=== PATIENT | female | born 1950 | race Hispanic/Latino ===

== ENCOUNTER 2017-05-26 10:16 | Inpatient (IN) | payer OTHER ==
[~2017-05-26] VITALS: Ht 157.5 cm; Wt 87.3 kg
[~2017-05-26 10:16] MED LIST: CIPRO500 MG PO; FLAGYL250 MG PO; LACTULOSE20 GM/30 M PO; LEVAQUIN500 MG PO; MELOXICAM7.5 MG PO; METFORMIN HCL500 MG PO; NADOLOL20 MG PO; PANTOPRAZOLE SO40 MG PO; TYLENOL WITH C1 EACH PO; XIFAXAN550 MG PO
[2017-05-26] MEDS ORDERED: ASPIRIN 81 MG CHEW TAB PO ONE (11:15)
[2017-05-26 13:02] LABS: BILIRUBIN,URINE NEGATIVE (NEGATIVE); CLARITY,URINE CLOUDY (CLEAR); COLOR,URINE YELLOW (YELLOW); KETONES,URINE NEGATIVE (NEGATIVE); LEUKOCYTE ESTERASE ,URINE 1+ (NEGATIVE); NITRITE,URINE NEGATIVE (NEGATIVE); PROTEIN,URINE DIPSTICK 1+ (NEGATIVE); URINE UROBILINOGEN 0.2 mg/dL (0.2 - 1)
[2017-05-26 13:12] LABS: BACTERIA,URINE MANY /HPF
[2017-05-26 13:13] LABS: EPITHELIAL CELLS,URINE FEW /LPF
[2017-05-26 15:39] LABS: BASOPHILS % 0.2 % (0.0-1.0); EOSINOPHILS % 0.2 % (0.0-6.0); HEMATOCRIT 32.5 % (34.2-44.1); HEMOGLOBIN 10.6 g/dL (12.0-16.0); LYMPHOCYTES # (AUTO) 0.3 (1.0-3.2); LYMPHOCYTES % 5.4 % (18.0-39.1); MEAN CORPUSCULAR HEMOGLOBIN 26.6 pg (28-32); MEAN CORPUSCULAR HGB CONC 32.6 g/dL (31-35); MEAN CORPUSCULAR VOLUME 81.5 fL (81-99); MONOCYTES # (AUTO) 0.3 (0.2-0.8); MONOCYTES % 5.9 % (4.4-11.3); NEUTROPHILS % 88.1 % (38.7-80.0); PLATELET COUNT 65 x10e3/uL (140-360); RED BLOOD COUNT 3.99 x10e6/uL (3.6-5.1); RED CELL DISTRIBUTION WIDTH 16.3 % (11.7-14.4)
[2017-05-26 15:58] LABS: ALBUMIN 3.1 g/dL (3.5-5.0); ALBUMIN/GLOBULIN RATIO 0.8 (0.8-2.0); ANION GAP 11.2 mmol/L (8-16); CALCIUM 8.4 mg/dL (8.4-10.2); CREATININE, SERUM 1.04 mg/dL (0.57-1.11); POTASSIUM 4.2 mmol/L (3.5-5.1)
[2017-05-26 16:04] LABS: CREATINE KINASE MB 0.8 ng/mL (0.00-5.00)
[2017-05-26 16:35] LABS: INR 1.13; PROTHROMBIN TIME 15.1 seconds (11.9-14.5)
[2017-05-26 16:36] LABS: PARTIAL THROMBOPLASTIN TIME 32.1 seconds (23.8-35.5)
[2017-05-26] MEDS ORDERED: CEFTRIAXONE SOD 1 GM VIAL IV ONE (16:45)
[2017-05-26] MEDS ORDERED: SODIUM CHLORIDE 0.9% 500ML 500 ML IV ONE (17:30)
--- NOTE | 2017-05-26 18:51 | Diagnostic Imaging Report ---
PROCEDURE: CT ABDOMEN AND PELVIS WITH CONTRAST TECHNIQUE: The abdomen and pelvis were scanned utilizing a multidetector helical scanner from the diaphragm to the lesser trochanter after the IV administration of 100 cc of Isovue 370 and the oral administration of 900 cc of water. Coronal and sagittal multiplanar reformations were obtained. DLP: 870.4 mGy-cm COMPARISON: Abdominal CT 12/31/2015 INDICATIONS: ABDOMINAL PAIN, RULE OUT MASS FINDINGS: LOWER THORAX: Persistent small right pleural effusion. New trace left pleural effusion. HEPATOBILIARY: Mildly nodular liver contour with enlarged caudate and left hepatic lobes reflecting cirrhosis. Poorly circumscribed approximately 6.5 x 6.1 x 7.3 cm heterogeneous mass (series 2 image 13) in the right hepatic lobe at the dome. This is in a region of localized intrahepatic biliary ductal dilatation noted on CT 01/01/2017 with the area of abnormality previously measuring 4.2 cm. There are increased areas of central hypoattenuation which may reflect necrosis or central washout. Increased associated biliary ductal dilatation, for example on coronal image 64 measuring 0.9 cm in hepatic segment V. SPLEEN: Enlarged measuring 18.9 cm in length. PANCREAS: No focal masses or ductal dilatation. ADRENALS: No adrenal nodules. KIDNEYS/URETERS: No hydronephrosis, stones, or solid mass lesions. Multifocal areas of scarring in the right kidney. A subcentimeter hypodensity in the superior right renal pole is too small to characterize but probably a cyst. PELVIC ORGANS/BLADDER: Unremarkable. PERITONEUM / RETROPERITONEUM: No free air. Small amount of pelvic ascites. LYMPH NODES: Increased size of a portocaval node (series 2 image 31) from 0.8 cm to 1.1 cm. VESSELS: Non-occlusive thrombus of the SMV near the portal confluence (coronal image 57). Dilated portal vein measuring 2.1 cm related to portal hypertension GI TRACT: No distention or wall thickening. Stable approximately 1.6 cm prominence of the distal esophagus which may reflect a paraesophageal hernia or focal area of wall thickening rather than a lymph node based on the previous CT. BONES AND SOFT TISSUES: Increased size of a fluid containing supraumbilical hernia with hernia sac measuring approximately 7.4 x 6.8 x 10.1 cm (previously 3.3 x 2.6 x 3.4 cm) and now appears multiseptated. No suspicious osseous lesions. Degenerative changes of the spine IMPRESSION: 1. Cirrhosis with a poorly circumscribed 7.3 cm mass in the hepatic dome. In the setting of cirrhosis, HCC is the primary concern. Cholangiocarcinoma is another consideration given the biliary ductal dilatation. Recommend MRI abdomen without and with contrast (liver mass protocol) for further characterization. 2. Portal hypertension with splenomegaly. 3. 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 4. Small bilateral pleural effusions, right greater than left. Trace ascites. 5. Enlarging multiseptated fluid-containing supraumbilical hernia. Dictated by: Roshan Couch M.D. on 05/26/2017 at 18:44 Electronically approved by: Roshan Couch M.D. on 05/26/2017 at 18:59
[2017-05-26] MEDS ORDERED: IBUPROFEN 600 MG TAB PO STA (19:49)
[2017-05-26] MEDS ORDERED: METRONIDAZOLE 500MG/NS 100ML 100 ML IV STA (19:49)
[2017-05-26] MEDS ORDERED: SODIUM CHLORIDE 0.9% 1000ML 1,000 ML IV SCH (20:00)
[2017-05-26] MEDS ORDERED: MORPHINE SULFATE 2 MG/ML SYR IV PRN (20:30)
[2017-05-26] MEDS ORDERED: ONDANSETRON HCL INJ 2 MG/ML VIAL IV PRN (20:30)
[2017-05-26] MEDS ORDERED: DEXTROSE 50% SYRINGE 50 ML IV PRN (20:30)
[2017-05-26] MEDS: SODIUM CHLORIDE 0.9% 1000ML 1,000 ML IV SCH (20:54)
[2017-05-26] MEDS ORDERED: INSULIN REGULAR, HUMAN 100 UNIT/1 ML 3ML VIAL SQ SCH (21:00)
[2017-05-26] MEDS ORDERED: IOPAMIDOL 370 MG/ML 200 ML INFUS..BTL INJ ONE (22:07)
[2017-05-26] MEDS ORDERED: SODIUM CHLORIDE 0.9% 50ML 50 ML ONE (22:07)
[2017-05-27] VITALS: BP 105/62
[2017-05-27] MEDS ORDERED: METRONIDAZOLE 500MG/NS 100ML 100 ML IV SCH (02:00)
[2017-05-27] MEDS ORDERED: METRONIDAZOLE 500MG/NS 100ML 100 ML IV ONE (02:07)
[2017-05-27 04:00] VITALS: BP 100/54
[2017-05-27] MEDS ORDERED: SODIUM CHLORIDE 0.9% 1000ML 1,000 ML ONE (05:27)
[2017-05-27] MEDS: SODIUM CHLORIDE 0.9% 1000ML 1,000 ML IV SCH (05:43)
[2017-05-27 06:04] LABS: EOSINOPHILS % 0.8 % (0.0-6.0); HEMOGLOBIN 8.5 g/dL (12.0-16.0); LYMPHOCYTES # (AUTO) 0.2 (1.0-3.2); LYMPHOCYTES % 8.6 % (18.0-39.1); MEAN CORPUSCULAR HEMOGLOBIN 26.8 pg (28-32); MEAN CORPUSCULAR HGB CONC 32.7 g/dL (31-35); MONOCYTES # (AUTO) 0.3 (0.2-0.8); MONOCYTES % 11.1 % (4.4-11.3); NEUTROPHILS # (AUTO) 1.9 (2.1-6.9); NEUTROPHILS % 79.1 % (38.7-80.0); RED BLOOD COUNT 3.17 x10e6/uL (3.6-5.1); RED CELL DISTRIBUTION WIDTH 16.3 % (11.7-14.4)
[2017-05-27 06:06] LABS: PLATELET COUNT 49 x10e3/uL (140-360)
[2017-05-27 06:22] LABS: ALBUMIN 2.3 g/dL (3.5-5.0); ALBUMIN/GLOBULIN RATIO 0.8 (0.8-2.0); ANION GAP 8.4 mmol/L (8-16); CALCIUM 7.4 mg/dL (8.4-10.2); CREATININE, SERUM 0.97 mg/dL (0.57-1.11); POTASSIUM 3.4 mmol/L (3.5-5.1)
[2017-05-27] MEDS: METRONIDAZOLE 500MG/NS 100ML 100 ML IV SCH ×3 (08:00→20:44)
[2017-05-27 08:19] VITALS: BP 94/46
[2017-05-27] MEDS ORDERED: ONDANSETRON HCL INJ 2 MG/ML VIAL IV PRN (09:00)
[2017-05-27] MEDS: PANTOPRAZOLE 40 MG 10ML VIAL IV SCH (09:00)
[2017-05-27] MEDS ORDERED: DEXTROSE 50% SYRINGE 50 ML IV PRN (09:00)
[2017-05-27] MEDS ORDERED: SODIUM CHLORIDE 0.9% 1000ML 1,000 ML IV SCH (09:00)
[2017-05-27] MEDS ORDERED: LACTULOSE SYRUP 20 GM/30 ML UDC PO SCH (09:00)
[2017-05-27] MEDS: LACTULOSE SYRUP 20 GM/30 ML UDC PO SCH ×2 (09:00→17:00)
[2017-05-27] MEDS ORDERED: PANTOPRAZOLE 40 MG 10ML VIAL IV SCH (09:00)
[2017-05-27] MEDS: INSULIN REGULAR, HUMAN 100 UNIT/1 ML 3ML VIAL SQ SCH ×3 (11:30→21:00)
--- NOTE | 2017-05-27 12:18 | Consultation ---
DATE OF CONSULTATION: May 27, 2017 REFERRING PHYSICIAN: Dr. Orville Brower. HISTORY OF PRESENT ILLNESS: The patient is a 67-year-old female who presented with complaints of abdominal pain in the periumbilical area. She says she had it for a couple of days. She has had a known hernia in that area for several months. Apparently previously had drainage of fluid from the umbilical area with what she described as a ball there. She says the pain increased yesterday but now is somewhat less today. She had some nausea yesterday but none today. She also has findings on CT scan of cirrhosis of the liver with a mass in the liver and evidence of portal hypertension. PAST MEDICAL HISTORY: Significant for hypertension, diabetes, hepatitis C, cirrhosis. The only previous surgery is a tubal ligation. MEDICATIONS AT HOME: Lactulose, metformin, nadolol and Protonix. ALLERGIES: SHE HAS NO KNOWN ALLERGIES. FAMILY HISTORY: Noncontributory. SOCIAL HISTORY: The patient does not smoke cigarettes and does not drink alcohol. REVIEW OF SYSTEMS: As stated above, otherwise was negative. PHYSICAL EXAMINATION VITAL SIGNS: Normal. GENERAL: The patient is awake and alert, in no distress. HEENT: No scleral icterus. NECK: No masses. LUNGS: Equal breath sounds are clear bilaterally. CARDIAC: Regular rate and rhythm. ABDOMEN: Soft. There is a mildly tender mass just above the umbilicus which is not reducible. There is no organomegaly. EXTREMITIES: Slightly cachectic with no edema. NEUROLOGIC: Grossly intact. LABORATORY DATA: White blood cell count is 2.4, hemoglobin 8.5, hematocrit 26, and platelet count 49,000. Chemistries: Elevated bilirubin at 2.3. The BUN and creatinine are normal. ASSESSMENT: This is a 67-year-old female with symptomatic umbilical hernia but no evidence of intestinal involvement and no obstruction. She also has cirrhosis and a mass in the liver. I think this needs to be evaluated before any consideration is made for repair of the hernia. She is at increased risk for complications with repair of the hernia because of her underlying liver disease. Thank you for asking see to see Ms. Vanessa. Job#: [id number]
--- NOTE | 2017-05-27 12:22 | Consultation ---
DATE OF CONSULTATION: May 26, 2017 REFERRING PHYSICIAN: Dr. Jose Whyte. REASON FOR CONSULT 1. RAMOS liver cirrhosis. 2. Liver mass. HISTORY OF PRESENTING ILLNESS: A 67-year-old, very pleasant female who speaks Icelandic fluently. She is a patient of my associate, Dr. Reeves. She follows up with him for compensated RAMOS liver cirrhosis. She saw him in April. She came to the emergency room with 2 days' history of intermittently persistent periumbilical pain. She does have umbilical hernia. No associated nausea, vomiting, diarrhea, constipation. Patient has had a CT scan done that showed a liver mass. GI is being consulted to assist in her care for RAMOS liver cirrhosis with liver mass. Surgery has been consulted for umbilical hernia. REVIEW OF SYSTEMS: Twelve point systems reviewed, symptomatology is limited as per HPI. PAST MEDICAL HISTORY: RAMOS liver cirrhosis. PAST SURGICAL HISTORY: Upper endoscopy, last one done about a year ago. FAMILY HISTORY: Negative for any GI or [employer] malignancy. SOCIAL HISTORY: No smoking, alcohol or any illicit drug use. ALLERGIES: NONE. HOME MEDICATIONS: Reviewed. PHYSICAL EXAMINATION VITAL SIGNS: Stable. GENERAL: Not in any acute distress. HEENT: Moist mucous membranes. Anicteric sclerae. No neck or axillary adenopathy. CVS: S1, S2. Regular. LUNGS: Bilaterally grossly clear. ABDOMEN: Obese, soft. No palpable hepatosplenomegaly. No shifting dullness. A small paraumbilical hernia. Mild left lower quadrant tenderness. No rebound, rigidity or guarding. Positive bowel sounds. EXTREMITIES: Warm. No leg edema. Lab and CT results to be reviewed. PLAN: Surgery consult for possible hernia repair. Pain in the paraumbilical region is likely due to hernia. Liver mass needs to be evaluated. We will review the CT film with the radiologist. Check a tumor marker, AFP. I thank Dr. Montelongo (ER physician) for allowing me to participate in the care of this patient. Job#: [id number] [facility]
[2017-05-27 12:55] VITALS: BP 102/54
[2017-05-27] MEDS ORDERED: GADOBUTROL 10 MMOL/10 ML VIAL IV ONE (14:35)
[2017-05-27] MEDS ORDERED: SODIUM CHLORIDE 0.9% 50ML 50 ML ONE (14:35)
[2017-05-27 16:58] VITALS: BP 115/59
[2017-05-27] MEDS: WATER STERILE 10 ML VIAL IV SCH (17:00)
[2017-05-27] MEDS: CEFTRIAXONE SOD 1 GM VIAL IV SCH (17:00)
[2017-05-27] MEDS ORDERED: CEFTRIAXONE SOD 1 GM VIAL IV SCH (17:00)
--- NOTE | 2017-05-27 19:10 | Diagnostic Imaging Report ---
PROCEDURE: MRI ABDOMEN WOW TECHNIQUE: Axial T1 in and out of phase, axial T2, fat-sat, coronal, T2 with and without fat-sat, axial ASSETT, axial DWI, and ADC MR images of the abdomen were performed before the intravenous administration of 8.5 cc of gadolinium. Axial T1, GRE dynamic images in precontrast, arterial, venous and delayed phases were performed, as well as delayed postcontrast ASSETT. Subtraction images were also performed. COMPARISON: Patients [facility], CT, CT ABDOMEN/PELVIS W, 12/31/2015, 21:58. Patients [facility], CT, CT ABDOMEN/PELVIS W, 05/26/2017, 18:10. INDICATIONS: Abnormal CT FINDINGS: Exam limited by breathing motion artifact LOWER THORAX: Small bilateral pleural effusions, right greater than left, with associated compressive atelectasis of the lower lobes. LIVER: Normal hepatic size. Nodular contour. No signal abnormality. Ill-defined 7.3 x 6.4 cm T2 hypointense, T1, isointense mass in hepatic segment VII at the dome (series 12, image 67), corresponding to the abnormality seen on recent CT. This mass shows predominantly peripheral enhancement on arterial phase, without enhancement of the central portion, with mild persistent enhancement on portal venous and delayed phases slightly greater than the hepatic parenchyma (for example series 100, images 9, 68 and 125). No definite washout. Central T2 hypointense structure has somewhat branching appearance and correspond to area where prior mildly dilated bile ducts were noted on CT dated 12/31/2015. There are T2 hyperintense, mildly dilated bile ducts in the periphery of the mass (for example series 11, image 18, and series 7, image 19 and series 8, image 13, and 14 in hepatic segment V). Additionally, 2.4 x 2.1 cm wedge-shaped peripherally located focus of arterial enhancement is noted in hepatic segment (Series 12, IMAGE 79) the colon, which is not seen in other phase of the dynamic study, and likely represents a transient perfusion abnormality. A 1.4 x 1.5 cm rounded focus of arterial enhancement in hepatic segment V (series 100, image 18) is less conspicuous on portal venous phase (series 100, image 76) and is not clearly seen in the delayed phase. DWI images are degraded by motion artifact. No other focal lesions. BILIARY: No extrahepatic biliary ductal dilation. 2.2 cm gallstone in the gallbladder lumen. PANCREAS: No mass or ductal dilatation. SPLEEN: Moderate splenomegaly, measuring 18.8 cm in craniocaudal diameter ADRENALS: No nodules. KIDNEYS: No hydronephrosis or mass in the imaged portion of the kidneys. PERITONEUM / RETROPERITONEUM: No upper abdominal free fluid. LYMPH NODES: No upper abdominal lymphadenopathy. VESSELS: Celiac trunk, superior and inferior mesenteric, and bilateral renal arteries are patent. Portal vein is patent and dilated, measuring approximately 2.0 cm. Nonocclusive thrombus in the proximal SMV is again noted. Splenic vein is patent. BONES AND SOFT TISSUES: No abnormal marrow signal. IMPRESSION: 1. ill-defined 7.3 cm mass in hepatic segment VII at the dome, corresponding to the abnormality seen on recent CT. Primary consideration is intrahepatic cholangiocarcinoma. Despite the presence of cirrhosis, HCC is a less likely consideration given the findings. Recommend tissue diagnosis for evaluation. 2. Other arterially enhancing foci described likely represent transient perfusion anomalies rather than metastatic lesions. 3. Cirrhotic liver with evidence of portal hypertension manifested by dilated portal vein and splenomegaly. 4. Cholelithiasis, without MR evidence of cholecystitis. 5. Nonocclusive thrombus in the SMV. Vik Malagon M.D. Dictated by: Vik Malagon M.D. on 05/27/2017 at 19:18 Electronically approved by: Vik Malagon M.D. on 05/27/2017 at 19:18
[2017-05-27 20:00] VITALS: BP 110/53
--- NOTE | 2017-05-27 21:06 | Progress Note ---
DATE: May 27, 2017 SUBJECTIVE: The patient reports improvement in lower abdominal pain. She is eating fine. She has had regular bowel movement today, soft brown stool. REVIEW OF SYSTEMS: GENERAL: No fever or chills. CVS: No chest pain or palpitations. RESPIRATORY: No cough or expectoration. MEDICATIONS: Inpatient medication list is reviewed as per AUG. OBJECTIVE VITAL SIGNS: Temperature 98.1, pulse 79, respiratory rate 20, blood pressure 115/59, oxygen saturation 96% on room air. GENERAL: Not in any acute distress. HEENT: Moist mucous membranes. Anicteric sclerae. CVS: S1 and S2 regular. LUNGS: Bilaterally grossly clear. ABDOMEN: Obese, soft. No shifting dullness. No digitally palpable hepatosplenomegaly. Abdominal examination is limited due to obese abdomen. Bowel sounds present. EXTREMITIES: Warm. No leg edema. LABORATORY DATA: WBC 2.44, hemoglobin 8.5 down from 10.6, hematocrit 26, MCV 82, platelet count 49,000, sodium 137, potassium 3.4, chloride 109, bicarb 23, BUN 19, creatinine 0.97. Liver test showed total bilirubin of 2.3, down from 2.7. AST 24, ALT 17, alkaline phosphatase 59. Liver test showed a total protein 5.3. Albumin 2.3. AST 24, ALT 17, alkaline phosphatase 59. MRI of the abdomen with contrast showed 7.3 cm mass in the hepatic segment, 7 at the dome, corresponding to the abnormality seen on the same CT. Primary consideration is intrahepatic cholangiocarcinoma despite the presence of cirrhosis. SCC is less likely consideration given the findings. Recommend tissue diagnosis for evaluation. Other arterially enhancing foci described likely the present transient perfusion anomalies rather than metastatic lesions. Cirrhotic liver with evidence of portal hypertension. Cholelithiasis without MRI evidence of cholecystitis. Nonocclusive IMPRESSION: Large liver mass in cirrhotic liver is most likely hepatocellular carcinoma (any liver mass in the cirrhotic liver is hepatocellular unless proved otherwise). Radiographic features are not characteristic of hepatocellular carcinoma, therefore, radiologist is recommending doing needle biopsy. There is a high possibility of intrahepatic cholangiocarcinoma. PLAN: Check tumor marker AFB and CA19-9. IR guided liver mass biopsy. The rest of the care is per primary team. Oncology consult. Discussed with Dr. Brower. Job#: [id number] [facility]
[2017-05-28] VITALS: BP 122/86
[2017-05-28] MEDS: METRONIDAZOLE 500MG/NS 100ML 100 ML IV SCH ×4 (02:49→20:33)
[2017-05-28 04:34] VITALS: BP 113/58
[2017-05-28 06:05] LABS: BASOPHILS % 0.6 % (0.0-1.0); HEMATOCRIT 27.5 % (34.2-44.1); HEMOGLOBIN 8.8 g/dL (12.0-16.0); LYMPHOCYTES # (AUTO) 0.2 (1.0-3.2); LYMPHOCYTES % 7.1 % (18.0-39.1); MEAN CORPUSCULAR HEMOGLOBIN 26.2 pg (28-32); MEAN CORPUSCULAR VOLUME 81.8 fL (81-99); MONOCYTES # (AUTO) 0.3 (0.2-0.8); NEUTROPHILS # (AUTO) 2.5 (2.1-6.9); PLATELET COUNT 53 x10e3/uL (140-360); RED BLOOD COUNT 3.36 x10e6/uL (3.6-5.1); RED CELL DISTRIBUTION WIDTH 16.5 % (11.7-14.4)
[2017-05-28 06:26] LABS: ALANINE AMINOTRANSFERASE 17 IU/L (0-55); ALBUMIN 2.4 g/dL (3.5-5.0); ALBUMIN/GLOBULIN RATIO 0.8 (0.8-2.0); ALKALINE PHOSPHATASE 61 IU/L (40-150); ANION GAP 8.3 mmol/L (8-16); BLOOD UREA NITROGEN 15 mg/dL (7-26); BUN/CREATININE RATIO 19 (6-25); CALCIUM 7.6 mg/dL (8.4-10.2); CARBON DIOXIDE 20 mmol/L (22-29); CHLORIDE 113 mmol/L (98-107); EST GLOMERULAR FILTRATION RATE > 60 ML/MIN (60-); GLUCOSE 129 mg/dL (74-118); POTASSIUM 3.3 mmol/L (3.5-5.1); SODIUM 138 mmol/L (136-145)
[2017-05-28] MEDS: INSULIN REGULAR, HUMAN 100 UNIT/1 ML 3ML VIAL SQ SCH ×4 (07:30→21:00)
[2017-05-28 07:53] VITALS: BP 115/55
[2017-05-28 08:05] LABS: ANISOCYTOSIS SLIGHT; EOSINOPHILS % (MANUAL) 2 % (0-7); LYMPHOCYTES % (MANUAL) 5 % (19-48); MONOCYTES % (MANUAL) 1 % (3.4-9.0); NEUTROPHILS % (MANUAL) 92 % (40-74); PLATELET ESTIMATE MARKEDLY DECREASED; PLATELET MORPHOLOGY COMMENT FEW LARGE; RBC MORPHOLOGY COMMENT ABNORMAL
[2017-05-28] MEDS: PANTOPRAZOLE 40 MG 10ML VIAL IV SCH (09:00)
[2017-05-28] MEDS: LACTULOSE SYRUP 20 GM/30 ML UDC PO SCH ×2 (09:00→16:58)
[2017-05-28 12:11] VITALS: BP 109/55
[2017-05-28 16:18] VITALS: BP 120/58
[2017-05-28] MEDS: WATER STERILE 10 ML VIAL IV SCH (16:58)
[2017-05-28] MEDS: CEFTRIAXONE SOD 1 GM VIAL IV SCH (16:58)
[2017-05-28 20:00] VITALS: BP 112/53
[2017-05-29 00:11] VITALS: BP 117/56
[2017-05-29] MEDS: METRONIDAZOLE 500MG/NS 100ML 100 ML IV SCH ×4 (02:28→21:11)
[2017-05-29 04:24] VITALS: BP 99/50
[2017-05-29 07:07] LABS: BASOPHILS % 0.4 % (0.0-1.0); EOSINOPHILS % 1.3 % (0.0-6.0); HEMATOCRIT 28.7 % (34.2-44.1); HEMOGLOBIN 9.1 g/dL (12.0-16.0); LYMPHOCYTES # (AUTO) 0.2 (1.0-3.2); LYMPHOCYTES % 9.6 % (18.0-39.1); MEAN CORPUSCULAR HEMOGLOBIN 26.3 pg (28-32); MEAN CORPUSCULAR HGB CONC 31.7 g/dL (31-35); MEAN CORPUSCULAR VOLUME 82.9 fL (81-99); MONOCYTES # (AUTO) 0.2 (0.2-0.8); MONOCYTES % 9.6 % (4.4-11.3); NEUTROPHILS # (AUTO) 1.8 (2.1-6.9); NEUTROPHILS % 78.2 % (38.7-80.0); PLATELET COUNT 56 x10e3/uL (140-360); RED BLOOD COUNT 3.46 x10e6/uL (3.6-5.1); RED CELL DISTRIBUTION WIDTH 16.5 % (11.7-14.4)
[2017-05-29] MEDS: INSULIN REGULAR, HUMAN 100 UNIT/1 ML 3ML VIAL SQ SCH ×4 (07:30→21:11)
[2017-05-29 07:47] LABS: ANION GAP 9.5 mmol/L (8-16); BLOOD UREA NITROGEN 14 mg/dL (7-26); BUN/CREATININE RATIO 18 (6-25); CALCIUM 7.9 mg/dL (8.4-10.2); CARBON DIOXIDE 20 mmol/L (22-29); CHLORIDE 113 mmol/L (98-107); CREATININE, SERUM 0.78 mg/dL (0.57-1.11); EST GLOMERULAR FILTRATION RATE > 60 ML/MIN (60-); GLUCOSE 125 mg/dL (74-118); POTASSIUM 3.5 mmol/L (3.5-5.1); SODIUM 139 mmol/L (136-145)
[2017-05-29 08:12] VITALS: BP 120/56
[2017-05-29] MEDS: LACTULOSE SYRUP 20 GM/30 ML UDC PO SCH ×2 (09:00→16:46)
[2017-05-29] MEDS: PANTOPRAZOLE 40 MG 10ML VIAL IV SCH (09:00)
[2017-05-29 10:32] LABS: EOSINOPHILS % (MANUAL) 1 % (0-7); LYMPHOCYTES % (MANUAL) 13 % (19-48); MONOCYTES % (MANUAL) 2 % (3.4-9.0); NEUTROPHILS % (MANUAL) 84 % (40-74); PLATELET MORPHOLOGY COMMENT NORMAL; RBC MORPHOLOGY COMMENT NORMAL
[2017-05-29 10:33] LABS: PLATELET ESTIMATE MARKEDLY DECREASED
[2017-05-29 11:51] VITALS: BP 99/55
[2017-05-29] MEDS ORDERED: SODIUM CHLORIDE 0.9% 100 ML 200 ML ONE (15:11)
[2017-05-29] MEDS ORDERED: IOPAMIDOL 370 MG/ML 200 ML INFUS..BTL INJ ONE (15:11)
--- NOTE | 2017-05-29 15:36 | Diagnostic Imaging Report ---
EXAM: CT Chest WITH contrast INDICATION: Staging COMPARISON: CT abdomen and pelvis 12/31/2015 TECHNIQUE: Chest was scanned utilizing a multidetector helical scanner from the lung apex through the level of the diaphragm after administration of IV contrast. Coronal and sagittal reconstructions were submitted for interpretation. Protocol: Pulmonary embolus protocol IV CONTRAST: 100 mL of Isovue 370 COMPLICATIONS: None RADIATION DOSE: Total exam DLP: 399.1 mGy*cm. CTDIvol has been reviewed. It is below the limits set by the Radiation Protocol Committee (RPC). FINDINGS: LINES/ TUBES: None. Heart: No cardiomegaly. No pericardial effusion. Vessels: No intraluminal filling defect within the pulmonary arteries to the segmental level. Normal thoracic aorta and coronary arteries. Mediastinum: No mediastinal or hilar mass or lymphadenopathy. Normal thyroid. Prominent subcarinal lymph node measuring 1.7 cm on series 2 image 37. Calcified lymph nodes in the right hilum. Lungs: No parenchymal mass. Bilateral lower lobe compression atelectasis. Normal parenchyma. Pleura: Large right pleural effusion. Small left pleural effusion. No pneumothorax. Soft tissues: Normal. No axillary mass or lymphadenopathy. Bones: No acute osseous abnormality. Degenerative changes of the thoracic spine. Adrenal glands: The right adrenal gland is normal. The left adrenal gland is not visualized. Abdomen: Ill-defined mass in the right lobe of the liver measuring approximately 10.0 cm on series 2 image 99. Additional smaller enhancing mass measuring 2.9 cm is present in the inferior aspect of the right lobe of the liver, series 2 image 83. Splenomegaly. 1.8 cm asymmetric density is present in the distal esophagus, series 2 image 61, located 4 cm from the gastroesophageal junction. IMPRESSION: 1. No evidence of pulmonary arterial embolism or thrombosis to the segmental level. 2. No evidence of metastatic disease in the chest. Prominent subcarinal lymph node. 3. Large right and small left pleural effusions. 4. Interval enlargement of the mass in the right lobe of the liver, consistent with progression of disease. Additional mass in the right lobe of the liver likely represents a satellite lesion. 5. Splenomegaly. 6. Asymmetric density in the esophagus may represent a malignancy. An endoscopy may provide additional information for further characterization. Signed by: Dr. Orville Keller M.D. on 05/29/2017 3:33 PM
[2017-05-29 16:02] VITALS: BP 118/58
[2017-05-29] MEDS: CEFTRIAXONE SOD 1 GM VIAL IV SCH (16:46)
[2017-05-29] MEDS: WATER STERILE 10 ML VIAL IV SCH (16:46)
[2017-05-29 21:22] VITALS: BP 100/55
[2017-05-30 00:49] VITALS: BP 104/53
[2017-05-30] MEDS: METRONIDAZOLE 500MG/NS 100ML 100 ML IV SCH ×4 (02:00→20:00)
[2017-05-30 06:01] VITALS: BP 109/54
[2017-05-30 06:18] LABS: BASOPHILS % 0.4 % (0.0-1.0); EOSINOPHILS # (AUTO) 0.1 (0.0-0.4); EOSINOPHILS % 2.5 % (0.0-6.0); HEMATOCRIT 28.6 % (34.2-44.1); HEMOGLOBIN 9.2 g/dL (12.0-16.0); LYMPHOCYTES # (AUTO) 0.2 (1.0-3.2); LYMPHOCYTES % 8.6 % (18.0-39.1); MEAN CORPUSCULAR HEMOGLOBIN 26.5 pg (28-32); MEAN CORPUSCULAR HGB CONC 32.2 g/dL (31-35); MEAN CORPUSCULAR VOLUME 82.4 fL (81-99); MONOCYTES # (AUTO) 0.3 (0.2-0.8); MONOCYTES % 10.3 % (4.4-11.3); NEUTROPHILS # (AUTO) 1.9 (2.1-6.9); NEUTROPHILS % 77.8 % (38.7-80.0); PLATELET COUNT 61 x10e3/uL (140-360); RED BLOOD COUNT 3.47 x10e6/uL (3.6-5.1); RED CELL DISTRIBUTION WIDTH 16.6 % (11.7-14.4)
[2017-05-30 06:47] LABS: INR 1.17; PROTHROMBIN TIME 15.5 seconds (11.9-14.5)
[2017-05-30 06:48] LABS: PARTIAL THROMBOPLASTIN TIME 40.2 seconds (23.8-35.5)
[2017-05-30 06:53] LABS: ALANINE AMINOTRANSFERASE 15 IU/L (0-55); ALBUMIN 2.3 g/dL (3.5-5.0); ALBUMIN/GLOBULIN RATIO 0.7 (0.8-2.0); ALKALINE PHOSPHATASE 54 IU/L (40-150); ANION GAP 11.4 mmol/L (8-16); BLOOD UREA NITROGEN 13 mg/dL (7-26); BUN/CREATININE RATIO 16 (6-25); CALCIUM 7.8 mg/dL (8.4-10.2); CARBON DIOXIDE 20 mmol/L (22-29); CHLORIDE 112 mmol/L (98-107); EST GLOMERULAR FILTRATION RATE > 60 ML/MIN (60-); GLUCOSE 140 mg/dL (74-118); POTASSIUM 3.4 mmol/L (3.5-5.1); SODIUM 140 mmol/L (136-145)
[2017-05-30 08:00] VITALS: BP 96/54
[2017-05-30] MEDS: LACTULOSE SYRUP 20 GM/30 ML UDC PO SCH ×2 (09:00→17:02)
[2017-05-30] MEDS: PANTOPRAZOLE 40 MG 10ML VIAL IV SCH (09:00)
[2017-05-30] MEDS: INSULIN REGULAR, HUMAN 100 UNIT/1 ML 3ML VIAL SQ SCH ×4 (10:42→21:00)
[2017-05-30 12:00] VITALS: BP 128/69
[2017-05-30] MEDS ORDERED: MIDAZOLAM HCL 2 MG/2 ML VIAL ONE (14:06)
[2017-05-30] MEDS ORDERED: FENTANYL CITRATE/PF 100MCG/2 ML INJ ONE (14:06)
[2017-05-30] MEDS ORDERED: GELATIN SPONGE 12-7MM ONE (14:55)
--- NOTE | 2017-05-30 15:53 | Diagnostic Imaging Report ---
PROCEDURE:IR BIOPSY LIVER COMPARISON:CT of the abdomen with contrast 05/26/2017. Preprocedure diagnosis:Right Liver Mass Post procedure diagnosis: Right liver mass Reconstructive Surgeon: Julien Mendez M.D. Sedation/anesthesia: Fentanyl 50 mcg intravenous, Versed 1 mg intravenous. The patient's heart rate and pulse oximetry were continuously monitored by the interventional radiology nurse. Blood pressure was monitored at 5 minute intervals. Complications: No immediate Estimated blood loss: Less than 15 cc Blood products administered: None Implants/graft: None Specimens: Fine-needle aspiration specimens x2, core biopsy specimens x5 Condition at completion of procedure: Stable Disposition: Radiology holding area, then return to floor unit. FINDINGS: Informed consent for the procedure was obtained from the patient and documented in the medical record after discussion of risks and benefits. The patient was placed in the supine position on the sonographic table. Preliminary sonographic evaluation confirmed presence of an ill-defined, heterogeneous lesion in hepatic segment 7. [employer] sonographic images were obtained. A suitable percutaneous approach was identified and the overlying skin was prepped and draped in the standard sterile fashion. 1% lidocaine was infiltrated into the skin and subcutaneous tissues for local anesthesia. Then under continuous sonographic guidance, a 16 gauge needle guide was advanced to the periphery of the lesion. 2 fine needle aspiration specimens were then obtained under continuous sonographic guidance using a 20 gauge needles. Specimens were submitted to on-site pathology personnel. Then, a total of 5 core biopsy specimens were obtained using an 18 gauge coaxial, 2 cm throw core biopsy apparatus. [employer] sonographic images were again stored. Specimens were submitted in formalin to pathology. At the conclusion of sampling a small amount of Gelfoam slurry was gently injected through the needle guide as it was removed for augmentation of hemostasis. Manual compression was applied. A sterile dressing was applied to the skin. Patient tolerated procedure well without immediate complication. Findings: Ill-defined predominantly hypoechoic lesion in hepatic segment 7, corresponding to the abnormality identified on comparison CT and MRI examinations from 05/26 and 05/27/2017. CONCLUSION: Successful ultrasound-guided fine needle aspiration and core biopsies of an ill-defined mass in the right hepatic lobe. Dictated by: Julien Mendez M.D. on 05/30/2017 at 16:01 Electronically approved by: Julien Mendez M.D. on 05/30/2017 at 16:01
--- NOTE | 2017-05-30 15:54 | Diagnostic Imaging Report ---
PROCEDURE:US GUIDED THYROID BIOPSY COMPARISON:None. INDICATIONS: Right Liver Mass PROCEDURE: Refer to conclusion CONCLUSION: For full dictated report please refer to the examination "BIOPSY LIVER" from 05/30/2017. Dictated by: Julien Mendez M.D. on 05/30/2017 at 16:02 Electronically approved by: Julien Menedz M.D. on 05/30/2017 at 16:02
[2017-05-30 16:00] VITALS: BP 118/56
[2017-05-30] MEDS: WATER STERILE 10 ML VIAL IV SCH (16:56)
[2017-05-30] MEDS: CEFTRIAXONE SOD 1 GM VIAL IV SCH (17:02)
[2017-05-30] MEDS ORDERED: POTASSIUM CHLORIDE 20 MEQ TAB CR PO ONE (19:20)
[2017-05-30] MEDS: MORPHINE SULFATE 5 MG/ML VIAL IV PRN (19:26)
[2017-05-30 20:00] VITALS: BP 119/59
--- NOTE | 2017-05-30 22:25 | Progress Note ---
DATE: May 30, 2017 GI PROGRESS REPORT SUBJECTIVE: Patient has had liver mass biopsy done today. She is reporting no abdominal pain. Tolerating oral feeds. She has had 1 bowel movement with soft brown stool today. REVIEW OF SYSTEMS: GENERAL: Weakness and lethargy, no fever or chills. CVS: No chest pain, palpitation. RESPIRATORY: No cough or expectoration. MEDICATIONS: Reviewed, as per MAR. She is on intravenous metronidazole as well as ceftriaxone along with other medications. PHYSICAL EXAMINATION: VITAL SIGNS: Temperature 97.8, pulse 79, respiration 16 to 19, blood pressure 118/56, oxygen saturation 99% on room air. GENERAL: Not in any acute distress. HEENT: Moist mucous membranes. Anicteric sclerae. NECK: No neck or axillary adenopathy. CVS: S1 and S2 regular. LUNGS: Bilaterally clear with decreased breath sounds at the right base, left lung relatively clear. ABDOMEN: Obese, is nontender. No palpable hepatosplenomegaly, no digitally appreciable palpable mass. Nonreducible paraumbilical hernia. EXTREMITIES: Warm. No leg edema. LABS: AFP 3.2. CA 19-9 pending. Sodium 140, potassium 3.4, chloride 112, bicarb 20, BUN 13, creatinine 0.80. Liver tests normal. PT 15.1, INR 1.13. IMPRESSION: 1. Right liver mass in a cirrhotic liver. Status post percutaneous needle biopsy done today. Oncology consult in place. Tumor marker alpha-fetoprotein is normal. CA 19-9 pending. 2. Right pleural effusion, thoracentesis planned. 3. Anemia. 4. Paraumbilical hernia, it is not incarcerated. No urgent surgery required at this time. PLAN: Follow up the liver mass biopsy results, treatment accordingly. If it is HCC, patient can be offered radio/chemoembolization, which will be done by interventional radiologist. Given the size of the mass, definitely falls out of the [place] criteria, therefore she is not a candidate for liver transplant. Job#: [id number]
[2017-05-31] VITALS: BP 106/44
[2017-05-31] MEDS: METRONIDAZOLE 500MG/NS 100ML 100 ML IV SCH ×3 (02:22→14:53)
[2017-05-31 04:00] VITALS: BP 96/49
[2017-05-31 06:04] LABS: BASOPHILS % 0.4 % (0.0-1.0); EOSINOPHILS % 1.6 % (0.0-6.0); HEMATOCRIT 30.7 % (34.2-44.1); HEMOGLOBIN 9.7 g/dL (12.0-16.0); LYMPHOCYTES # (AUTO) 0.2 (1.0-3.2); LYMPHOCYTES % 8.6 % (18.0-39.1); MEAN CORPUSCULAR HEMOGLOBIN 26.4 pg (28-32); MEAN CORPUSCULAR HGB CONC 31.6 g/dL (31-35); MEAN CORPUSCULAR VOLUME 83.7 fL (81-99); MONOCYTES # (AUTO) 0.3 (0.2-0.8); MONOCYTES % 10.1 % (4.4-11.3); NEUTROPHILS % 78.9 % (38.7-80.0); PLATELET COUNT 74 x10e3/uL (140-360); RED BLOOD COUNT 3.67 x10e6/uL (3.6-5.1); RED CELL DISTRIBUTION WIDTH 16.7 % (11.7-14.4)
[2017-05-31 08:00] VITALS: BP_SYST 117; BP_SYST 134; BP_DIAS 59; BP_DIAS 64
[2017-05-31] MEDS: LACTULOSE SYRUP 20 GM/30 ML UDC PO SCH ×2 (09:00→17:42)
[2017-05-31] MEDS: PANTOPRAZOLE 40 MG 10ML VIAL IV SCH (10:00)
[2017-05-31] MEDS: INSULIN REGULAR, HUMAN 100 UNIT/1 ML 3ML VIAL SQ SCH ×4 (10:01→20:14)
[2017-05-31 12:00] VITALS: BP 102/49
--- NOTE | 2017-05-31 12:15 | Diagnostic Imaging Report ---
PROCEDURE: CHEST XRAY POST PROCEDURE COMPARISON: None. INDICATIONS: POST THORACENTESIS FINDINGS: LUNGS: No consolidations or edema. PLEURA: Decrease in the right pleural effusion. No pneumothorax. HEART \T\ MEDIASTINUM: The heart is within normal size-limits. BONES \T\ SOFT TISSUES: No acute findings. CONCLUSION: No pneumothorax, S/P right thorocentesis. Kike Ramsey D.O. Dictated by: Kike Ramsey D.O. on 05/31/2017 at 12:22 Electronically approved by: Kike Ramsey D.O. on 05/31/2017 at 12:22
--- NOTE | 2017-05-31 12:18 | Diagnostic Imaging Report ---
PROCEDURE: ULTRASOUND GUIDED THORACENTESIS COMPARISON: None. INDICATIONS:Pleural Effusion FINDINGS: After informed consent was obtained, the patient was placed in the sitting position and preliminary ultrasound of the posterior chest identified a safe route into the right pleural effusion. The overlying skin was prepped and draped in usual sterile fashion. Lidocaine 1% was used for local anesthesia. Under ultrasound guidance, a 5 Fr centesis needle was advanced into the pleural fluid and 1,100 cc's were aspirated. The patient tolerated the procedure well and there were no immediate post-procedural complications. A post-thoracentesis chest radiograph will be obtained. CONCLUSION: Uncomplicated ultrasound-guided right thoracentesis with removal of 1,100 cc's. Fluid sent to the lab for analysis. Kike Ramsey D.O. Dictated by: Kike Ramsey D.O. on 05/31/2017 at 12:25 Electronically approved by: Kike Ramsey D.O. on 05/31/2017 at 12:25
[2017-05-31 13:23] LABS: BODY FLUID APPEARANCE SL.CLOUDY; BODY FLUID COLOR YELLOW; BODY FLUID TYPE PLEURAL
[2017-05-31 13:24] LABS: RBC,BODY FLUID 282 cells/uL; WBC,BODY FLUID 49 cells/uL
[2017-05-31 13:47] LABS: LYMPHOCYTES,BODY FLUID 67 %; MONO/MACROPHG,BODY FLUID 19 %; NEUTROPHILS,BODY FLUID 7 %; OTHER CELLS,BODY FLUID 7 %
[2017-05-31] MEDS: MORPHINE SULFATE 5 MG/ML VIAL IV PRN (14:59)
[2017-05-31 16:00] VITALS: BP 99/53
[2017-05-31] MEDS: CEFTRIAXONE SOD 1 GM VIAL IV SCH (17:42)
[2017-05-31] MEDS: WATER STERILE 10 ML VIAL IV SCH (17:42)
[2017-05-31] MEDS ORDERED: ONDANSETRON HCL 4 MG ORAL DISINTEGRATING TAB PO PRN (17:45)
[2017-05-31] MEDS: TRAMADOL HCL 50 MG TAB PO PRN (18:59)
[2017-05-31 20:00] VITALS: BP 109/72
[2017-06-01] VITALS: BP 112/52
[2017-06-01] MEDS: TRAMADOL HCL 50 MG TAB PO PRN ×2 (00:02→08:15)
--- NOTE | 2017-06-01 03:01 | Progress Note ---
DATE: May 31, 2017 GI PROGRESS REPORT SUBJECTIVE: Patient reports no abdominal pain. She is awaiting for liver biopsy result. REVIEW OF SYSTEMS GENERAL: Generalized weakness. CVS: No chest pain or palpitation. RESPIRATORY: No cough or expectoration. MEDICATIONS: Reviewed as per MAR. She is on ceftriaxone along with other medications. PHYSICAL EXAM VITAL SIGNS: Temperature 98.5, pulse 83, respiration 17, blood pressure 99/53, oxygen saturation 95% on room air. GENERAL: Not in any acute distress. HEENT: Moist mucous membranes. Anicteric sclerae. CVS: S1/S2 regular. LUNGS: Bilaterally grossly clear. ABDOMEN: Obese, soft, nondistended. No palpable mass or hernia. Abdominal exam is limited secondary to abdominal obesity. No digitally appreciable free fluids. Bowel sounds present. EXTREMITIES: Warm. No leg edema. LABS: WBC 2.57, hemoglobin 9.7, hematocrit 30.7, MCV 83.7, platelet count 74,000. No chemistry done today. CA 19-9 is 22. IMPRESSIONS 1. A 7.3-cm mass in the right lobe of the liver. She also has a history of nonalcoholic steatohepatitis liver cirrhosis. Status post percutaneous needle biopsy of the liver mass. 2. Right pleural effusion. 1. Anemia. 2. Periumbilical hernia, it is not incarcerated. Surgery service Dr Fajardo has been consulted. PLAN: Liver biopsy result pending. Tumor markers both AFB, as well as CA 19-9 are normal. Given the size of the mass, this definitely falls out of the [place] criteria; therefore, she is not a candidate for liver transplant. Patient is a candidate for chemo or radioembolization by IR. I am putting the consult for IR to see if iridium radioembolization can be done on this admission. Discussed with Dr. Baxter [oncologist]. Job#: [id number] CQ MTDD
[2017-06-01 04:00] VITALS: BP 110/49
[2017-06-01 06:04] LABS: BASOPHILS % 0.6 % (0.0-1.0); EOSINOPHILS % 1.2 % (0.0-6.0); HEMATOCRIT 30.1 % (34.2-44.1); HEMOGLOBIN 9.5 g/dL (12.0-16.0); LYMPHOCYTES # (AUTO) 0.3 (1.0-3.2); LYMPHOCYTES % 8.4 % (18.0-39.1); MEAN CORPUSCULAR HEMOGLOBIN 26.4 pg (28-32); MEAN CORPUSCULAR HGB CONC 31.6 g/dL (31-35); MEAN CORPUSCULAR VOLUME 83.6 fL (81-99); MONOCYTES # (AUTO) 0.3 (0.2-0.8); MONOCYTES % 9.9 % (4.4-11.3); NEUTROPHILS # (AUTO) 2.7 (2.1-6.9); PLATELET COUNT 75 x10e3/uL (140-360); RED CELL DISTRIBUTION WIDTH 16.9 % (11.7-14.4)
[2017-06-01 06:26] LABS: ALANINE AMINOTRANSFERASE 16 IU/L (0-55); ALBUMIN 2.4 g/dL (3.5-5.0); ALBUMIN/GLOBULIN RATIO 0.7 (0.8-2.0); ALKALINE PHOSPHATASE 58 IU/L (40-150); ANION GAP 9.6 mmol/L (8-16); BLOOD UREA NITROGEN 14 mg/dL (7-26); BUN/CREATININE RATIO 18 (6-25); CALCIUM 7.5 mg/dL (8.4-10.2); CARBON DIOXIDE 21 mmol/L (22-29); CHLORIDE 112 mmol/L (98-107); CREATININE, SERUM 0.77 mg/dL (0.57-1.11); EST GLOMERULAR FILTRATION RATE > 60 ML/MIN (60-); GLUCOSE 131 mg/dL (74-118); POTASSIUM 3.6 mmol/L (3.5-5.1); SODIUM 139 mmol/L (136-145)
[2017-06-01] MEDS: INSULIN REGULAR, HUMAN 100 UNIT/1 ML 3ML VIAL SQ SCH (07:30)
[2017-06-01 08:11] VITALS: BP 102/55
[2017-06-01] MEDS: LACTULOSE SYRUP 20 GM/30 ML UDC PO SCH (08:18)
[2017-06-01] MEDS ORDERED: NADOLOL 20 MG TAB PO SCH (09:00)
[2017-06-01] MEDS ORDERED: PANTOPRAZOLE SOD 40 MG TABEC PO SCH (09:00)
[2017-06-01] MEDS ORDERED: KEFLEX500 MG PO (09:44)
[2017-06-01] MEDS ORDERED: ULTRAM 50MG50 MG PO (10:11)
[2017-06-01 11:57] VITALS: BP 109/51
--- NOTE | 2017-06-01 16:28 | Discharge Summary ---
PRIMARY CARE PHYSICIAN: Dr. Paul Liriano. CONSULTANTS 1. Dr. Koby Austin. 2. Dr. Onel Lizarraga. 3. Dr. Julien Fajardo. 4. Dr. Alan Up. FINAL DIAGNOSES 1. Liver mass associated with liver cirrhosis, status post liver biopsy, pending result. 2. Urinary tract infection associated with fever and symptoms of systemic inflammatory response syndrome. 3. Morbid obesity. 4. Baseline nonalcoholic steatohepatitis associated with liver cirrhosis. SUMMARY: A 67-year-old female came in with fever and urinary tract infection. CT scan eventually found that patient had a liver mass with liver cirrhosis. The patient may have spontaneous bacterial peritonitis, but abdomen examination showed liver mass. The patient is now status post liver biopsy, pending pathology result. She has been getting Rocephin. The urine culture grew out to be Klebsiella pneumoniae urinary tract infections with multiple sensitivity and antibiotics. Overall, the patient is stable, fever resolved. Blood pressure is stable. No further workup needed at this time. The patient will need to follow up as an outpatient with Dr. Austin and Dr. Up for any adjustment and any procedure plan. The patient will go home today with Keflex 500 mg t.i.d. for 7 days, tramadol 50 mg q.6 hour p.r.n. for pain, and resume her home medication. Job#: [id number] JUDI
== END 2017-06-01 12:24 | disposition home or self-care (01) | DRG 871 ==
LOC: ER 10:16 → UNDOADMIN 21:22 → ERHOLD 21:22 → MED/SURG2 23:23
PROVIDERS: ADMIT Internal Medicine; ATTEND Internal Medicine
PROC: 0FB13ZX Excision of Right Lobe Liver, Percutaneous Approach, Diagnostic (ICD-10-PCS; principal; 2017-05-30)
PROC: 0W993ZX Drainage of Right Pleural Cavity, Percutaneous Approach, Diagnostic (ICD-10-PCS; 2017-05-31)
DX: A41.9 Sepsis, unspecified organism (principal); K65.2 Spontaneous bacterial peritonitis; J90 Pleural effusion, not elsewhere classified; D61.818 Other pancytopenia; I85.10 Secondary esophageal varices without bleeding; C22.1 Intrahepatic bile duct carcinoma; K76.6 Portal hypertension; E66.01 Morbid (severe) obesity due to excess calories; N39.0 Urinary tract infection, site not specified; K74.60 Unspecified cirrhosis of liver; R16.0 Hepatomegaly, not elsewhere classified; B96.1 Klebsiella pneumoniae [K. pneumoniae] as the cause of diseases classified elsewhere; B96.89 Other specified bacterial agents as the cause of diseases classified elsewhere; K75.81 Nonalcoholic steatohepatitis (NASH); B19.20 Unspecified viral hepatitis C without hepatic coma; I10 Essential (primary) hypertension; K42.9 Umbilical hernia without obstruction or gangrene; Z68.35 Body mass index [BMI] 35.0-35.9, adult; D64.9 Anemia, unspecified; E86.0 Dehydration; R16.1 Splenomegaly, not elsewhere classified
CPT/HCPCS: 32555; 36415; 47000; 71010; 71260; 74177; 74183; 74470; 76942; 80048; 80053; 81001; 82105; 82140; 82150; 82378; 82550; 82553; 82948; 83605; 83615; 83690; 84157; 84484; 85025; 85610; 85730; 86301; 86900; 87070; 87086; 87186; 87205; 88172; 88173; 88305; 88307; 88342; 89051; 93005; 96360; 96367; 96372; 99284; A9585; J0696; J2250; J2270; J7030; J7040; Q9967